=== PATIENT | male | born 1990 | race Caucasian/White ===

== ENCOUNTER 2018-12-11 22:06 | Emergency (ER) | payer OTHER ==
[~2018-12-11] VITALS: Ht 177.8 cm; Wt 111.4 kg
[2018-12-11 22:09] VITALS: BP 158/98; PULSE 88; TEMP 98.5
== END 2018-12-11 23:58 | disposition home or self-care (01) ==
LOC: COL.ER 22:06
DX: F41.9 Anxiety disorder, unspecified (principal)